=== PATIENT | female | born 1930 | race Caucasian/White ===

== ENCOUNTER 2018-03-24 19:47 | Inpatient (IN) | payer OTHER ==
[~2018-03-24] VITALS: Ht 162.6 cm; Wt 77.3 kg
[~2018-03-24 19:47] MED LIST: ACETAMINOPHEN/H1 TA6 PO; ALDACTONE25 MG PO; CLARITIN10 MG PO; CLINDAMYCIN HC300 MG PO; COL100 PO; KLOR-CON M1010 MEQ PO; LAC PO; LASIX40 MG PO; LEVOTHYROXINE0.1 M2 PO; LORAZEPAM1 MG PO; LOVASTATIN40 MG PO; NIFEDIPINE60 MG PO; PAROXETINE HCL40 M1 PO; RANITIDINE HCL150 M1 PO
[2018-03-24 19:59] VITALS: Ht 162.6 cm; Wt 77.3 kg
[2018-03-24 20:39] LABS: PLATELET COUNT 332 x10^3mcL (130-400); RED CELL DISTRIBUTION WIDTH 13.9 % (11.5-14.5)
[2018-03-24 20:40] LABS: BASOPHIL % 2.2 % (0-2)
[2018-03-24 20:49] LABS: CALCIUM 8.4 mg/dL (8.5-10.1); CARBON DIOXIDE 25.7 mmol/L (21-32); CHLORIDE SERUM 102 mmol/L (98-107); CREATININE SERUM 1.8 mg/dL (0.6-1.0); GLUCOSE SERUM 131 mg/dL (74-106); POTASSIUM SERUM 3.7 mmol/L (3.5-5.1); SODIUM SERUM 138 mmol/L (136-145)
[2018-03-24 20:53] LABS: ALKALINE PHOSPHATASE 107 U/L (46-116); ALT/SGPT 18 U/L (14-59); AST/SGOT 29 U/L (15-37); BILIRUBIN TOTAL 0.42 mg/dL (0.20-1.00); TOTAL PROTEIN, SERUM 7.3 g/dL (6.4-8.2)
[2018-03-24 20:55] LABS: ALBUMIN 3.3 g/dL (3.4-5.0)
[2018-03-24 21:14] LABS: FREE T4 1.57 ng/dL (0.76-1.46)
[2018-03-24] MEDS ORDERED: ALLOPURINOL100 MG PO (22:42)
[2018-03-24] MEDS ORDERED: FUROSEMIDE80 MG PO (22:42)
[2018-03-25 00:05] VITALS: BP 144/65
[2018-03-25 05:34] VITALS: BP 121/50
[2018-03-25 10:05] VITALS: BP 139/62
[2018-03-25 13:33] VITALS: BP 141/56
[2018-03-25 17:47] VITALS: BP 126/42
[2018-03-25 21:04] VITALS: BP 127/49
[2018-03-26 05:42] VITALS: BP 139/51
[2018-03-26 06:12] LABS: BASOPHIL % 0.9 % (0-2); PLATELET COUNT 282 x10^3mcL (130-400); RED CELL DISTRIBUTION WIDTH 14.2 % (11.5-14.5)
[2018-03-26 06:19] LABS: CALCIUM 8.9 mg/dL (8.5-10.1); CARBON DIOXIDE 25.5 mmol/L (21-32); CHLORIDE SERUM 101 mmol/L (98-107); CREATININE SERUM 1.3 mg/dL (0.6-1.0); GLUCOSE SERUM 93 mg/dL (74-106); POTASSIUM SERUM 3.3 mmol/L (3.5-5.1); SODIUM SERUM 138 mmol/L (136-145)
[2018-03-26 14:25] VITALS: BP 135/54
[2018-03-26 18:02] VITALS: BP 124/57
[2018-03-26 22:39] VITALS: BP 132/51
[2018-03-27 06:03] VITALS: BP 133/56
[2018-03-27] MEDS ORDERED: CLOPIDOGREL75 M1 PO (09:11)
[2018-03-27] MEDS ORDERED: METOPROLOL SUCC25 M2 PO (09:11)
[2018-03-27 09:43] VITALS: BP 131/55
[2018-03-27 13:07] VITALS: BP 132/48
[2018-03-27 13:35] VITALS: BP 132/48
[2018-03-28] MEDS ORDERED: ATIVAN0.5 M1 (09:31)
== END 2018-03-27 16:51 | disposition home or self-care (01) | DRG 280 ==
LOC: ED 19:47 → DU 22:42
PROVIDERS: Emergency Medicine; ADMIT Internal Medicine Pulmonary Disease
DX: I21.4 Non-ST elevation (NSTEMI) myocardial infarction (principal); I50.43 Acute on chronic combined systolic (congestive) and diastolic (congestive) heart failure; I13.0 Hypertensive heart and chronic kidney disease with heart failure and stage 1 through stage 4 chronic kidney disease, or unspecified chronic kidney disease; N18.4 Chronic kidney disease, stage 4 (severe); N17.9 Acute kidney failure, unspecified; I35.0 Nonrheumatic aortic (valve) stenosis; E03.9 Hypothyroidism, unspecified; I25.10 Atherosclerotic heart disease of native coronary artery without angina pectoris; Z95.1 Presence of aortocoronary bypass graft
CPT/HCPCS: 83880; 84439; 97112-GP; 97116-GP; J0696; J1650; J1940; J3370; J7050; Q0092

== ENCOUNTER 2018-03-28 08:18 | Inpatient (IN) | payer OTHER ==
[~2018-03-28] VITALS: Ht 162.6 cm; Wt 76.7 kg
[~2018-03-28 08:18] MED LIST changes: +ALLOPURINOL100 MG PO; +CLOPIDOGREL75 M1 PO; +FUROSEMIDE80 MG PO; +METOPROLOL SUCC25 M2 PO
[2018-03-28 08:22] VITALS: Ht 162.6 cm; Wt 76.7 kg
[2018-03-28 08:54] LABS: BASOPHIL % 0.5 % (0-2); PLATELET COUNT 389 x10^3mcL (130-400); RED CELL DISTRIBUTION WIDTH 13.9 % (11.5-14.5)
[2018-03-28 09:02] LABS: CALCIUM 8.8 mg/dL (8.5-10.1); CARBON DIOXIDE 27.4 mmol/L (21-32); CHLORIDE SERUM 97 mmol/L (98-107); CREATININE SERUM 1.6 mg/dL (0.6-1.0); GLUCOSE SERUM 142 mg/dL (74-106); POTASSIUM SERUM 3.4 mmol/L (3.5-5.1); SODIUM SERUM 134 mmol/L (136-145)
[2018-03-28 09:06] LABS: ALBUMIN 3.5 g/dL (3.4-5.0); ALKALINE PHOSPHATASE 95 U/L (46-116); ALT/SGPT 17 U/L (14-59); AST/SGOT 21 U/L (15-37); BILIRUBIN TOTAL 0.62 mg/dL (0.20-1.00); TOTAL PROTEIN, SERUM 7.5 g/dL (6.4-8.2)
[2018-03-28] MEDS ORDERED: ATIVAN0.5 M1 (09:31)
[2018-03-28 12:10] VITALS: BP 124/49
[2018-03-28 16:19] VITALS: BP 127/44
[2018-03-28 20:49] VITALS: BP 106/61
[2018-03-28 22:02] VITALS: BP 109/56
[2018-03-29 05:30] VITALS: BP 124/59
[2018-03-29 06:28] LABS: BASOPHIL % 0.8 % (0-2); PLATELET COUNT 333 x10^3mcL (130-400)
[2018-03-29 06:37] LABS: CALCIUM 8.5 mg/dL (8.5-10.1); CARBON DIOXIDE 27.5 mmol/L (21-32); CHLORIDE SERUM 94 mmol/L (98-107); GLUCOSE SERUM 104 mg/dL (74-106); POTASSIUM SERUM 4.6 mmol/L (3.5-5.1); SODIUM SERUM 132 mmol/L (136-145)
[2018-03-29 09:05] VITALS: BP 116/42
[2018-03-29 12:29] VITALS: BP 122/43
[2018-03-29 16:44] VITALS: BP 102/46
[2018-03-29 23:34] VITALS: BP 135/48
[2018-03-30 05:42] VITALS: BP 124/50
[2018-03-30 07:04] LABS: CALCIUM 8.4 mg/dL (8.5-10.1); CHLORIDE SERUM 95 mmol/L (98-107); CREATININE SERUM 1.9 mg/dL (0.6-1.0); GLUCOSE SERUM 88 mg/dL (74-106); POTASSIUM SERUM 3.9 mmol/L (3.5-5.1); SODIUM SERUM 131 mmol/L (136-145)
[2018-03-30 08:50] VITALS: BP 118/74
[2018-03-30 09:34] VITALS: BP 131/52
[2018-03-30 14:51] VITALS: BP 131/52
[2018-03-30 17:35] VITALS: BP 157/58
[2018-03-30 21:15] VITALS: BP 144/81
[2018-03-31 05:17] VITALS: BP 120/43
[2018-03-31 09:36] VITALS: BP 110/39
[2018-03-31 12:46] VITALS: BP 131/43
[2018-03-31 13:25] LABS: CALCIUM 8.2 mg/dL (8.5-10.1); CARBON DIOXIDE 31.3 mmol/L (21-32); CHLORIDE SERUM 100 mmol/L (98-107); CREATININE SERUM 1.5 mg/dL (0.6-1.0); GLUCOSE SERUM 77 mg/dL (74-106); POTASSIUM SERUM 3.6 mmol/L (3.5-5.1); SODIUM SERUM 137 mmol/L (136-145)
[2018-03-31 17:44] VITALS: BP 143/60
[2018-03-31 21:20] VITALS: BP 133/49
[2018-04-01 05:13] VITALS: BP 126/45
[2018-04-01 09:30] VITALS: BP 128/48
[2018-04-01 12:03] VITALS: BP 126/55
[2018-04-01 16:37] VITALS: BP 118/59
[2018-04-01 20:45] VITALS: BP 117/44
[2018-04-02 05:02] VITALS: BP 118/49
[2018-04-02 08:35] VITALS: BP 115/47
[2018-04-02 12:00] VITALS: BP 118/55
== END 2018-04-02 13:48 | disposition home or self-care (01) | DRG 280 ==
LOC: ED 08:18 → DU 10:45
PROVIDERS: Emergency Medicine; Internal Medicine; ADMIT Internal Medicine Pulmonary Disease
DX: I50.21 Acute systolic (congestive) heart failure (principal); I21.4 Non-ST elevation (NSTEMI) myocardial infarction; J96.01 Acute respiratory failure with hypoxia; I13.0 Hypertensive heart and chronic kidney disease with heart failure and stage 1 through stage 4 chronic kidney disease, or unspecified chronic kidney disease; N18.4 Chronic kidney disease, stage 4 (severe); I42.9 Cardiomyopathy, unspecified; E87.1 Hypo-osmolality and hyponatremia; N17.9 Acute kidney failure, unspecified; I35.1 Nonrheumatic aortic (valve) insufficiency; I34.0 Nonrheumatic mitral (valve) insufficiency; E03.9 Hypothyroidism, unspecified; I25.10 Atherosclerotic heart disease of native coronary artery without angina pectoris; Z68.28 Body mass index [BMI] 28.0-28.9, adult; Z95.1 Presence of aortocoronary bypass graft
CPT/HCPCS: 83880; 97110-GP; 97116-GP; J1940; J2270; J2405; Q0092